=== PATIENT | female | born 1985 | race Caucasian/White ===

== ENCOUNTER → 2016-11-28 | Outpatient (CLI) | payer BC ==
[~2016-11-28] MED LIST: PRENTAB26 PO
[2016-11-28 14:08] LABS: HEMATOCRIT 38.9 % (37-47); MEAN CELL VOLUME 87.8 fL (80-100); MEAN CORPUSCULAR HEMOGLOBIN 29.3 pg (25-34); MEAN CORPUSCULAR HGB CONC 33.4 g/dl (32-36); MEAN PLATELET VOLUME 10.8 fL (7.4-10.4); PLATELET COUNT 199 K/uL (130-400); RED BLOOD COUNT 4.43 M/uL (4.2-5.4); WHITE BLOOD COUNT 9.79 K/uL (4.8-10.8)
== END | disposition home or self-care (01) ==
LOC: C.LAB1850 12:44
PROVIDERS: ATTEND Obstetrics & Gynecology
DX: Z34.03 Encounter for supervision of normal first pregnancy, third trimester (principal)

== ENCOUNTER → 2016-12-12 | Outpatient (CLI) | payer BC | END | disposition home or self-care (01) | LOC: C.LABSPEC 17:49 | PROVIDERS: ATTEND Obstetrics & Gynecology | DX: Z34.03 Encounter for supervision of normal first pregnancy, third trimester (principal) ==

== ENCOUNTER 2017-01-09 12:10 | Inpatient (IN) | payer BC ==
[~2017-01-09] VITALS: Ht 167.6 cm; Wt 69.0 kg
[2017-01-09] MEDS ORDERED: LACTATED RINGER'S 1000ML 1,000 ML IV PRN (12:31)
[2017-01-09 12:55] LABS: HEMATOCRIT 40.1 % (37-47); MEAN CELL VOLUME 86.4 fL (80-100); MEAN CORPUSCULAR HEMOGLOBIN 30.6 pg (25-34); MEAN CORPUSCULAR HGB CONC 35.4 g/dl (32-36); MEAN PLATELET VOLUME 11.4 fL (7.4-10.4); PLATELET COUNT 194 K/uL (130-400); RED BLOOD COUNT 4.64 M/uL (4.2-5.4); WHITE BLOOD COUNT 10.92 K/uL (4.8-10.8)
[2017-01-09] MEDS ORDERED: LACTATED RINGER'S 1000ML 500 ML IV PRN ×2 (13:40→18:21)
[2017-01-09] MEDS: LACTATED RINGER'S 1000ML 1,000 ML IV SCH ×2 (13:43→18:06)
[2017-01-09] MEDS ORDERED: OXYTOCIN 30 UNITS/500ML NSS IV PRN ×2 (13:45→19:15)
[2017-01-09 14:28] VITALS: Ht 167.6 cm; Wt 69.0 kg
--- NOTE | 2017-01-09 16:54 | Medical Student: [facility] ---
Med Student History & Physical Date of Service Jan 09, 2017. Chief Complaint Prolonged Monitoring History of Present Illness Source: patient Medina Lima is a 31 year old Female 40-4/7 weeks Gestational Age with an SHARIF of 01/05/2017 by Ultrasound who presents for induction of labor due to variable decelerations on NST. She was sent over from the OB office and admitted to the L&D unit. Medina and her moved to [place] from [place] at 34+ weeks and [place] [facility] [place] She reports that the has gone well. She denies contractions. She endorses movement. She reports bleeding around 6 weeks that resolved, as well as a small amount of spotting at 20 weeks, both determined not to be a concern by her physician in [place]. A small amount of bleeding resulted from her membrane stripping 1 week ago. She endorsed increased clear vaginal discharge around 37 weeks that was not amniotic fluid. She denies fluid leakage at any other time. Endorses movement. Blood Type: A positive Rubella: immune GBS: negative HBV: negative VDRL/RPR: nonreactive Chlamydia/Gonorrhea: negative CBC (1239 on 01/09/2017) Hgb 14.2, Hct 40.1 OB History G1: Current B[employer]ER History Menarche: 16 LMP: Unknown No Hx abnormal pap smear, Last one performed in 2013 History of Right Breast Cancer in 2013. She felt a lump, received chemotherapy , followed by a lumpectomy, which was followed by radiation. She then received Herceptin for 1 year following radiation. 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 Her ovaries were not protected during chemo/radiation. All mammograms and MRI have been negative since. Past Medical History Right Breast Cancer 2013 Past Surgical History Right Breast Lumpectomy 2013 Family History Father: Hypercholesterolemia Mother: Hypertension Maternal Uncle: Bladder Cancer Denies Family Hx of Ovary and Breast Cancer. 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, plans on resuming) Allergies Coded Allergies: Azithromycin (Verified Allergy, Mild, DIARRHEA AND SKIN IRRITATION ON CHEEKS, 12/17/16) Morphine (Verified Allergy, Mild, n/v/d, hives, 12/17/16) with T&A age 7 Diphenhydramine (Verified Adverse Reaction, Mild, hyperactivity, 12/17/16) Home Medications Multivit/Min/Iron/Fol Ac/Pren ( Vitamin), 1 TAB PO DAILY Review of Systems Constitutional: No fever, No chills Eyes: No worsening of vision ENT: No hearing loss Respiratory: No cough, No shortness of breath Cardiovascular: No chest pain, No palpitations Abdomen: No pain, No nausea, No vomiting, No diarrhea, No constipation, No GI bleeding Musculoskeletal: No calf pain Genitourinary - Female: No dysuria, No hematuria Physical Exam Vital Signs: T 36.7, BP 114/72, R16, P64 General Appearance: WD/WN, no apparent distress Respiratory/Chest: lungs clear, normal breath sounds Cardiovascular: regular rate, rhythm, no edema, no murmur Abdomen / GI: non tender, soft, + pertinent finding (gravid uterus) Fundal Height: Term Genitourinary - Female: + pertinent finding (Cervix exam on admission: performed by Dr. Schulz, [id number], Effeacement 90%, Station (-2)) Extremities: no calf tenderness, no pedal edema Skin: normal color, warm/dry Monitoring External Monitor: Heart Rate: 125 Acceleration: present, Decelerations: absent Variability: Minimal to Moderate. Periods of Category I tracings with Periods of Good Category II with occasional Variable decelerations. Tocodynamometer: Contractions: denied timed contractions Laboratory Results 01/09/17 12:39 Test 01/09/17 12:39 Red Blood Count 4.64 M/uL (4.2-5.4) Mean Corpuscular Volume 86.4 fL (80-100) Mean Corpuscular Hemoglobin 30.6 pg (25-34) Mean Corpuscular Hemoglobin Concent 35.4 g/dl (32-36) RDW Standard Deviation 43.0 fL (36.4-46.3) RDW Coefficient of Variation 13.7 % (11.5-14.5) Mean Platelet Volume 11.4 fL (7.4-10.4) Assessment and Plan Assessment: Medina Lima is a 31 year old female 40-4/7 weeks gestational age with and SHARIF of 01/05/2017 presenting to L&D for Induction of Labor due to multiple variable decelerations on NST. EFM reveals Both periods of Category I tracings and Good Category II tracings. Vital signs are WNL, and she appears stable. Plan: Consult Anesthesiology regarding morphine allergy. -Plan to give epidural if approved Monitor Mother and fetus with toco and EFM NPO except Ice chips and clear liquids Induce Labor with Pitocin and AROM Expect
[2017-01-09] MEDS ORDERED: CALCIUM CARBONATE 500 MG CHEWABLE PO PRN ×2 (17:15→19:15)
[2017-01-09] MEDS ORDERED: EpHEDrine SULFATE INJ 50 MG/ML AMP ONE (17:25)
[2017-01-09] MEDS ORDERED: BUPIVACAINE 0.25% 30 ML VIAL ONE (17:25)
[2017-01-09] MEDS ORDERED: FENTANYL 2MCG/ML ROPIV 1.25MG/ML 100ML BAG EPI ONE (17:25)
[2017-01-09] MEDS ORDERED: FENTANYL CITRATE INJ 50 MCG/1 ML 2 ML VIAL ONE (17:25)
[2017-01-09] MEDS ORDERED: NALOXONE HCL INJ 1 MG in SODIUM CHLORIDE 0.9% 1000ML 1,000 ML IV PRN (18:21)
[2017-01-09] MEDS ORDERED: ONDANSETRON INJ 2 MG/ML 2 ML VIAL IV PRN (18:30)
[2017-01-09] MEDS ORDERED: FENTANYL 2MCG/ML ROPIV 1.25MG/ML 100ML BAG EPI PRN (18:30)
[2017-01-09] MEDS ORDERED: PROMETHAZINE HCL INJ 6.25 MG in SODIUM CHLORIDE 0.9% 50ML 50 ML IV PRN (18:30)
[2017-01-09] MEDS ORDERED: NALOXONE HCL INJ 0.4 MG/1 ML VIAL/CARP IV PRN (18:30)
[2017-01-09] MEDS ORDERED: NALBUPHINE HCL INJ 10 MG/ML AMP IV PRN (18:30)
[2017-01-09] MEDS ORDERED: EpHEDrine SULFATE INJ 50 MG/ML AMP IV PRN (18:30)
[2017-01-09] MEDS ORDERED: DiphenhydrAMINE HCL 50 MG/ML VIAL IV PRN (18:30)
[2017-01-09] MEDS ORDERED: DIPHTHERIA/TETANUS/PERTUSSIS 0.5 ML SYR/VIAL IM. ONE (19:15)
[2017-01-09] MEDS ORDERED: LANOLIN OINT EXT PRN ×2 (19:15)
[2017-01-09] MEDS ORDERED: BENZOCAINE 20% AER SPR 82.5 GM CAN EXT PRN (19:15)
[2017-01-09] MEDS ORDERED: ACETAMINOPHEN 325 MG TAB PO PRN (19:15)
[2017-01-09] MEDS ORDERED: IBUPROFEN 600 MG TAB PO PRN (19:15)
[2017-01-09] MEDS ORDERED: HYDROCORTISONE ACETATE 25 MG SUPP PR PRN (19:15)
[2017-01-09] MEDS ORDERED: SUPERCREAM 0.870 % 15GM JAR EXT PRN (19:15)
--- NOTE | 2017-01-09 19:30 | Anesthesia Procedure Note ---
Anesthesia Epidural Removal Nt Date & Time Jan 09, 2017 at 19:30 Vital Signs Pain Intensity: 9.0 Notes Mental Status: alert / awake / arousable, participated in evaluation Nausea / Vomiting: adequately controlled Pain: adequately controlled Airway Patency, RR, SpO2: stable & adequate BP & HR: stable & adequate Hydration State: stable & adequate Neuraxial Anesthesia: was administered Anesthetic Complications: no major complications apparent, pt satisfied with anesthetic care Epidural: removed without complications, with tip intact
[2017-01-09] MEDS: DOCUSATE SODIUM 100 MG CAP PO SCH (20:00)
--- NOTE | 2017-01-09 20:13 | DELIVERY SUMMARY ---
DATE OF OPERATION: 01/09/2017 PREOPERATIVE DIAGNOSES: 1. Intrauterine at 40 and 4/7 weeks. 2. Variables on nonstress test. POSTOPERATIVE DIAGNOSES: 1. Intrauterine at 40 and 4/7 weeks. 2. Variables on nonstress test. PROCEDURES: 1. Pitocin augmentation. 2. Epidural anesthesia. 3. Amniotomy. 4. Vacuum-assisted vaginal delivery. 5. Second-degree perineal laceration with repair. SURGEON: Irish Schulz MD ANESTHESIA: Epidural. ESTIMATED BLOOD LOSS: 400 mL. PROCEDURE IN DETAIL: The patient presented over to Labor and Delivery because she was having postdates NST with variables and minimal variability. Decision made given her gestational age, advanced cervical dilation, and she was 4, 90, and -2 to proceed with induction. She was started on Pitocin augmentation. During the course of her induction, the fetus was intermittently category 1 with reactive NST and category 2 with variables and minimal variability. The patient progressed rapidly after receiving her epidural anesthesia, was found to be complete-complete and +2 station. Amniotomy was done for clear fluid. She was instructed to push. During pushing and when she was discovered to be complete, the heart tones were slowly decreasing and were in the 80s and then eventually were in the 60s. The heart rate was in the 70s to 80s for about 8 minutes. When the heart rate remained in the 60s to 70s even after pushing, the fetus was at +2 to +3 station, and the fetus was not responding to tactile stimulation. I recommended to the patient to proceed with vacuum assist. She gave verbal consent for such. The vacuum was applied over the next contraction at approximately 50 mmHg, and we had one popoff. The vacuum was reapplied during that same contraction and with maternal effort, the head was delivered. The vacuum was removed. There was nuchal cord x1 that was reduced, and the rest of the baby was then delivered without difficulty. There was immediate and lusty cry. Nose and mouth were bulb suctioned. The was dried and placed on the maternal abdomen for drying and attention. At one minute of life, the cord was clamped and cut. Cord blood and gases were obtained. Placenta was delivered spontaneously intact with a 3-vessel cord. Cervix, sulci and rectum were examined and found to be intact. The second-degree perineal laceration was repaired with 3-0 Vicryl in normal standard fashion. Hemostasis was obtained with dilute Pitocin and fundal massage. Apgars were 8 and 9. Weight pending. Mother and baby doing well at the end of the delivery. I attest to the content of the Intraoperative Record and any orders documented therein. Any exception s are noted below.
[2017-01-09 22:15] VITALS: BP 115/77; PULSE 79; TEMP 36.9
[2017-01-10] VITALS (7 sets, daily range): BP systolic 99–117; BP diastolic 64–78; PULSE 65–88; TEMP 36.6–37.3; O2SAT 96–97
--- NOTE | 2017-01-10 06:49 | OB/GYN Progress Note ---
ENERGY AUDITOR Progress Note Date of Service Jan 10, 2017. Subjective conversation w/ patient, physical exam, chart review, lab review Ambulation: ambulating normally Voiding: no voiding problems Passing Gas: Yes Diet Tolerance: Regular Diet Lochia: Small Feeding Type: Breast Feeding (and bottle feeding) Pain: 3/10 pain Review of Systems Constitutional: No fever, No chills Respiratory: No shortness of breath Cardiac: No chest pain Abdomen: No nausea, No vomiting Female : No dysuria Objective Vital Signs Date Time Temp Pulse Resp B/P (MAP) Pulse Ox O2 Delivery O2 Flow Rate FiO2 01/10/17 03:40 36.6 65 18 100/64 (76) Room Air 01/10/17 00:10 Room Air 01/10/17 00:10 37.3 75 18 112/66 (81) Room Air 01/09/17 22:15 36.9 79 16 115/77 (90) Room Air Physical Exam General Appearance: WELL-APPEARING Respiratory/Chest: lungs clear, normal breath sounds Cardiovascular: regular rate, rhythm Abdomen: normal bowel sounds, non tender, soft Fundus: Firm, Relation to Umbilicus (1 FB below) Extremities: non-tender, no pedal edema Laboratory Results Last 24 Hours Test 01/09/17 12:39 01/10/17 04:44 White Blood Count 10.92 K/uL Red Blood Count 4.64 M/uL Hemoglobin 14.2 g/dL Hematocrit 40.1 % Mean Corpuscular Volume 86.4 fL Mean Corpuscular Hemoglobin 30.6 pg Mean Corpuscular Hemoglobin Concent 35.4 g/dl RDW Standard Deviation 43.0 fL RDW Coefficient of Variation 13.7 % Platelet Count 194 K/uL Mean Platelet Volume 11.4 fL Assessment and Plan Post- Day Number: 1 Continue Routine Care: A/P: This is a 31 y/o female, , s/p [normal vaginal delivery] day 1. She is ambulating and clinically stable. Plan: - Vitals signs are reviewed and WNL (Tmax 37.3) - Last Hgb is 14.2 this AM is pending - Blood type A+, GBS neg, Rubella Immune - Routine care - Encourage ambulation, monitor and control pain with medication as needed, continue with regular diet as tolerated and monitor lochia - Stool softeners and sitz bath recommended - Encourage breast feeding and educate about breast feeding Resident Physician Supervision Note: I interviewed and examined the patient. Discussed with Dr. Dr. Baker and agree with findings and plan as documented in the note. Any exceptions or clarifications are listed here: Doing well. Routine care. Documented By: Irish Schulz Resident Involvement: Resident Care Provided Care Provided: OB Delivery
[2017-01-10 07:46] LABS: HEMATOCRIT 38.2 % (37-47)
[2017-01-10] MEDS: PRENATAL VITAMIN TAB PO SCH (09:39)
[2017-01-10] MEDS: DOCUSATE SODIUM 100 MG CAP PO SCH ×2 (09:39→21:49)
--- NOTE | 2017-01-11 06:05 | Discharge Instructions ---
Discharge Instructions Date of Service Jan 11, 2017. Admission Reason for Admission: Prolonged Monitoring Discharge Discharge Diagnosis / Problem: after vaginal delivery Discharge Goals Goal(s): Routine recovery after delivery Medications Continue Dispensed Medications: supercream, dermaplast, tucks, lansinoh Activity Recommendations Activity Limitations: per Instructions/Follow-up section . Instructions / Follow-Up Instructions / Follow-Up ACTIVITY RECOMMENDATIONS: * Gradual return to full activity over the next 2-3 weeks. * No lifting - nothing heavier than baby over the next 2-3 weeks. * Do not engage in vigorous exercise, sexual activity or sports until cleared by your physician. * Do not drive or operate any motorized equipment until cleared by your physician. * You may shower/bathe daily. MEDICATIONS: For discomfort or pain, you may use Acetaminophen (Tylenol), Ibuprofen (Advil), or Naproxen (Aleve) following the package directions. For constipation you may use Colace following the package directions. BREAST CARE: If you are not breast feeding: * Wear a supportive bra 24 hours a day for one to two weeks. * Avoid stimulating your breasts and nipples as much as possible during the first few weeks after delivery. * When taking a shower, have the warm water hit your back, not breasts. * When your breasts feel full, apply ice packs. Usually three to four times a day helps ease the discomfort. * Take a mild pain medication (Tylenol / Motrin) when you are uncomfortable. If breast feeding: * Use breast milk to lubricate nipples. Lansinoh cream may be used for sore nipples. You do not need to remove cream prior to breast feeding. If using a different brand of cream, check the label for directions regarding removal of cream prior to nursing. * Wear a supportive bra. * If having problems with breasts or breast feeding, call a customer care consultant or your health care provider. EPISIOTOMY CARE: After delivery, if you have an episiotomy (stitches), the following steps will ease discomfort and aid healing. * For the first 24 hours after delivery, place ice packs next to your episiotomy to help reduce swelling. * After the first 24 hour-period, sitz baths, either portable or in the tub, are suggested. A shower with a shower arm sprayed over the episiotomy may be comforting. * Beckie care should be done after each voiding and bowel movement. Squirt warm water from a plastic bottle over the perineum (region of the body between the anus and urinary opening) and pat dry. * Use Dermoplast to ease discomfort. Shake container. [place] directly over the episiotomy. Place a Tucks on a clean sanitary pad next to your episiotomy. SPECIAL CARE INSTRUCTIONS: When you are discharged from the hospital, it is important for you to follow the instructions listed below: * During the first week at home, you should be able to care for yourself and your baby. In addition, the usual light household activities are encouraged. * Limit your activities to the way you feel. Do not try to clean the house or move furniture. Be sensible. * If you actively engage in sports and have done so up until the time of your delivery, you may resume these activities as soon as you feel able. This may take up to one month or even longer. Use good judgment. * Continue to take your vitamins for at least six weeks after the of your baby. * Your diet need not be limited unless you were on a special diet before your delivery. Breast-feeding mothers need around 2500 calories per day and at least 64-80 ounces of fluid per day (8 to 10 glasses). * You should eat foods from the four major food groups. Crash diets or fad diets are to be avoided. Eating lean meats, fresh fruits and vegetables, low-fat dairy products, high fiber foods and a regular exercise program, will help you get back to your pre- weight without putting your health at risk. * Constipation is sometimes a problem after delivery. Take a mild laxative as needed. If breast feeding, Milk of Magnesia is acceptable to use. You may use a suppository or Fleets enema if no episiotomy. * A daily shower or tub bath is suggested. Be sure to thoroughly and gently dry the perineum. * A bloody vaginal discharge will usually continue until around four weeks post . A small amount of bleeding may continue for as long as six weeks. Vaginal discharge changes from the bright red bleeding after delivery to pink then brownish and finally yellowish-pink before becoming white and disappearing. * Bleeding may increase with activity. Your first period may come in 4-8 weeks. If you are breast feeding, your period may be delayed even longer. * [place] (sex) can begin whenever both you and your partner feel comfortable and do not have any form of genital infection. It is recommended that you wait at least six weeks for internal and external healing to occur. If you have questions, please talk to your health care practitioner. A condom should be used to prevent infection and . * Foreplay, gentle intercourse and lubrication is very important the first several times to prevent pain. A water-based lubricant such as K-Y jelly or Astroglide may be used. * If you have RH negative blood and your baby is RH positive, you will receive RHOGAM by injection prior to discharge. The nurse will give you a card to keep with you that has the date and place that you received RHOGAM after delivery. * During your care, you had a Rubella screen done to check for the presence of rubella antibodies in your blood. If your test was negative, you will receive a Rubella vaccine prior to discharge. This vaccine may cause a fever, soreness at the injection site and flu-like symptoms. If these symptoms persist, notify your health care practitioner. is not advised for one month after a Rubella vaccine. * Verbalizes understanding of car seat law as reviewed with patient nursing. * Car Seat hand-out given and reviewed with patient by nursing. * Shaken baby information reviewed with patient by nursing. Call you doctor if: * Heavy bleeding (saturating several pads an hour) or passing clots the size of your fist. * A fever >101 degrees F (38.3 degrees C) on two occasions four hours apart and /or chills. * Unusual pain in the pelvic or vaginal areas. * "Baby Blues" lasting longer than two weeks. If you have any questions or concerns, call your health care practitioner at . FOLLOW UP VISIT: * Please call the office at to schedule a 6 week examination. It is important you keep this appointment. It is important for you to make arrangements for either yearly or twice yearly check-ups thereafter. Current Hospital Diet Patient's current hospital diet: Regular OB Diet Discharge Diet Recommended Diet: Regular Diet Pending Studies Studies pending at discharge: no Medical Emergencies . Who to Call and When: Medical Emergencies: If at any time you feel your situation is an emergency, please call 911 immediately. . Non-Emergent Contact Non-Emergency issues call your: Criminal Investigator . . "Provider Documentation" section prepared by Bert Baker. . VTE Core Measure Inpt VTE Proph given/why not?: SCD's
--- NOTE | 2017-01-11 06:53 | OB/GYN Progress Note ---
MANAGEMENT REP Progress Note Date of Service Jan 11, 2017. Subjective conversation w/ patient, physical exam, chart review, lab review Ambulation: ambulating normally Voiding: no voiding problems Passing Gas: Yes Diet Tolerance: Regular Diet Lochia: Small Feeding Type: Breast Feeding (also bottle feeding) Pain: mild pain Notes: Had a BM Review of Systems Constitutional: No fever, No chills Respiratory: No shortness of breath Cardiac: No chest pain Abdomen: No nausea, No vomiting Female : No dysuria Objective Vital Signs Date Time Temp Pulse Resp B/P (MAP) Pulse Ox O2 Delivery O2 Flow Rate FiO2 01/10/17 23:15 Room Air 01/10/17 23:15 36.8 80 20 113/71 (85) Room Air 01/10/17 16:40 Room Air 01/10/17 16:40 36.9 88 18 109/76 (87) Room Air 01/10/17 13:25 36.9 73 18 117/78 (91) 97 Room Air 01/10/17 10:26 37.0 82 18 99/64 (76) 96 Room Air 01/10/17 08:35 37.0 82 18 99/64 (76) 96 Room Air Physical Exam General Appearance: WELL-APPEARING Respiratory/Chest: lungs clear, normal breath sounds Cardiovascular: regular rate, rhythm Abdomen: normal bowel sounds, non tender, soft Fundus: Firm, Relation to Umbilicus (3 FB below) Extremities: non-tender, + pedal edema (trace ) Laboratory Results Last 24 Hours Test 01/10/17 07:28 Hemoglobin 12.9 g/dL Hematocrit 38.2 % Assessment and Plan Post- Day Number: 2 Continue Routine Care: A/P: This is a 31 y/o female, , s/p [normal vaginal delivery] day 2. She is ambulating and clinically stable. Plan: - Vitals signs are reviewed and WNL (Tmax 37.3) - Last Hgb is 12.9 - Blood type A+, GBS neg, Rubella Immune - Routine care - Discussed resting, feeding, pain control, mastitis, control, follow up in 6 weeks and reasons to call sooner, if necessary. - Continue with pain medication as needed, and continue vitamins. - Encourage breast feeding and educate about breast feeding - Patient understands and keen for home. - Plan to discharge home Resident Physician Supervision Note: I was present with Dr. Baker during the history and exam. I discussed the case with the resident and agree with the findings and plan as documented in the note. Any exceptions or clarifications are listed here: [None] Documented By: Peter Connolly Resident Involvement: Resident Care Provided Care Provided: OB Delivery
[2017-01-11 08:30] VITALS: BP 112/78; PULSE 84; TEMP 36.8
[2017-01-11] MEDS: DOCUSATE SODIUM 100 MG CAP PO SCH (08:44)
[2017-01-11] MEDS: PRENATAL VITAMIN TAB PO SCH (08:44)
[2017-01-11 17:02] VITALS: BP 98/68; PULSE 80; TEMP 36.7
[2017-01-11 18:23] VITALS: BP_DIAS 68; PULSE 80; TEMP 36.7
== END 2017-01-11 18:27 | disposition home or self-care (01) | DRG 775 ==
LOC: C.OPB 12:10 → C.LD 12:23 → C.OPB 12:33 → C.OBG 22:09
PROVIDERS: ADMIT Obstetrics & Gynecology; ATTEND Obstetrics & Gynecology
PROC: 0WQNXZZ Repair Female Perineum, External Approach (ICD-10-PCS; principal; 2017-01-09)
PROC: 10D07Z6 Extraction of Products of Conception, Vacuum, Via Natural or Artificial Opening (ICD-10-PCS; principal; 2017-01-09)
DX: O70.1 Second degree perineal laceration during delivery (principal); Z3A.08 8 weeks gestation of pregnancy; Z37.0 Single live birth